=== PATIENT | male | born 2000 | race Hispanic/Latino ===

== ENCOUNTER 2020-12-01 06:33 | Emergency (ER) | payer OTHER ==
[~2020-12-01] VITALS: Ht 185.4 cm; Wt 84.4 kg
[2020-12-01 06:35] VITALS: BP 168/59
[2020-12-01] MEDS ORDERED: MORPHINE 4 MG SYG ONE (07:16)
[2020-12-01] MEDS ORDERED: IOHEXOL-350 75 ML VIAL IV ONE (07:40)
[2020-12-01] MEDS ORDERED: 0.9%NACL 1000ML 1,000 ML IV SCH ×2 (07:59→09:00)
[2020-12-01] MEDS ORDERED: ONDANSETRON 4MG INJ IVP SCH (07:59)
[2020-12-01] MEDS ORDERED: MORPHINE 4 MG SYG IV SCH (08:00)
[2020-12-01 08:24] LABS: BASOPHILS % (AUTO) 0.5 % (0.0-5.0); EOSINOPHILS % (AUTO) 0.5 % (0.0-8.0); HEMATOCRIT 46.5 % (42-54); LYMPHOCYTES % (AUTO) 24.9 % (21.0-51.0); MEAN CORPUSCULAR HEMOGLOBIN 30.7 pg (27.0-33.0); MEAN CORPUSCULAR HGB CONC 35.9 g/dL (32.0-36.0); MEAN CORPUSCULAR VOLUME 85.5 fL (80-100); MONOCYTES % (AUTO) 7.9 % (3.0-13.0); NEUTROPHILS % (AUTO) 65.8 % (40.0-77.0); PLATELET COUNT (AUTO) 283 K/uL (130-400); RED BLOOD CELL COUNT(AUTO) 5.44 MIL/uL (4.50-6.20); RED CELL DISTRIBUTION WIDTH 12.5 % (11.0-15.5); WHITE BLOOD COUNT (AUTO) 10.4 K/uL (4.8-10.8)
[2020-12-01 08:30] LABS: POTASSIUM 3.8 mmol/L (3.5-5.1)
[2020-12-01 08:37] LABS: ALBUMIN 4.4 g/dL (3.5-5.0); BILIRUBIN,TOTAL 1.9 mg/dL (0.2-1.0); TOTAL PROTEIN, SERUM 8.2 g/dL (6.0-8.3)
[2020-12-01 08:52] VITALS: BP 136/66
[2020-12-01 12:04] VITALS: BP 136/66
== END 2020-12-01 12:10 | disposition home or self-care (01) ==
LOC: EDH 06:33
DX: R10.84 Generalized abdominal pain (principal); R12 Heartburn; Z79.899 Other long term (current) drug therapy
CPT/HCPCS: 36415; 74177; 80053; 82150; 83690; 85025; 96361; 96374; 96375; 99285; J2270; J2405; Q9967

== ENCOUNTER 2021-01-18 15:01 | Emergency (ER) | payer OTHER ==
[~2021-01-18] VITALS: Ht 185.4 cm; Wt 83.9 kg
[2021-01-18 15:09] VITALS: BP 124/57
[2021-01-18] MEDS ORDERED: IBUPROFEN 600 MG TABLET PO ONE (15:30)
[2021-01-18] MEDS ORDERED: HYDROCODONE/ACETAMINOPHEN 5/325 MG TAB ONE (16:26)
[2021-01-18] MEDS ORDERED: HYDROCODONE/ACETAMINOPHEN 5/325 MG TAB PO ONE ×2 (16:30)
[2021-01-18 16:33] VITALS: BP 131/54
== END 2021-01-18 18:52 | disposition left against medical advice (07) ==
LOC: EDH 15:01
DX: M25.552 Pain in left hip (principal); M79.641 Pain in right hand; V49.49XA Driver injured in collision with other motor vehicles in traffic accident, initial encounter; Y93.89 Activity, other specified; Y92.89 Other specified places as the place of occurrence of the external cause; Y99.8 Other external cause status
CPT/HCPCS: 72170; 73130; 74176